=== PATIENT | male | born 1945 | race Caucasian/White ===

== ENCOUNTER 2018-10-30 22:03 | Inpatient (IN) | payer MEDICARE, OTHER, MEDICAID ==
[2018-10-30 22:35] LABS: ADD MAN DIFF? NO
[2018-10-30 22:38] LABS: BASOPHILS % 0.2 % (0.0-2.0); HEMATOCRIT 26.2 % (42.0-52.0); HEMOGLOBIN 8.1 g/dl (14.0-18.0); LYMPHOCYTES # 1.1 10^3/ul (0.8-2.9); LYMPHOCYTES % 7.2 % (15.0-51.0); MEAN CORPUSCULAR HEMOGLOBIN 28.1 pg (29.0-33.0); MEAN CORPUSCULAR HGB CONC 30.9 g/dl (32.0-37.0); MONOCYTE # 0.7 10^3/ul (0.3-0.9); MONOCYTES % 4.5 % (0.0-11.0); NEUTROPHIL # 12.7 10^3/ul (1.6-7.5); NEUTROPHILS % 87.3 % (39.0-77.0); NUCLEATED RED BLOOD CELLS # 0.1 10^3/ul (0.0-0.0); NUCLEATED RED BLOOD CELLS% 0.4 /100WBC (0.0-0.0); PLATELET COUNT 291 10^3/UL (140-415); RED BLOOD COUNT 2.88 10^6/ul (4.70-6.10)
[2018-10-30 22:38] LABS: WHITE BLOOD COUNT 14.6 10^3/ul (4.8-10.8)
[2018-10-30 22:57] LABS: PROTIME 19.4 Sec (11.9-14.9); PT RATIO 1.5
[2018-10-30 22:59] LABS: ALANINE AMINOTRANSFERASE 27 IU/L (13-69); ALBUMIN 3.5 g/dl (3.3-4.9); ALBUMIN/GLOBULIN RATIO 1.06; ALKALINE PHOSPHATASE 103 IU/L (42-121); ANION GAP 12 (5-13); ASPARTATE AMINO TRANSFERASE 34 IU/L (15-46); BILIRUBIN,INDIRECT 0.3 mg/dl (0-1.1); BILIRUBIN,TOTAL 0.3 mg/dl (0.2-1.3); BLOOD UREA NITROGEN 89 mg/dl (7-20); CALCIUM 9.5 mg/dl (8.4-10.2); CARBON DIOXIDE 23 mmol/L (21-31); CHLORIDE 110 mmol/L (97-110); CREATININE 2.08 mg/dl (0.61-1.24); GLUCOSE 155 mg/dl (70-220); POTASSIUM 5.3 mmol/L (3.5-5.1); SODIUM 145 mmol/L (135-144); TOTAL PROTEIN 6.8 g/dl (6.1-8.1)
[2018-10-30 23:10] LABS: ACETAMINOPHEN < 10.0 ug/ml (10.0-30.0); ETHANOL < 10.0 mg/dl (0-0); SALICYLATE < 1.0 mg/dl (5.0-30.0)
[2018-10-30 23:15] LABS: ADD UMIC YES; UR AMORPHOUS CRYSTAL FEW /HPF (NONE SEEN); UR ASCORBIC ACID NEGATIVE (NEGATIVE); UR BACTERIA FEW /HPF (NONE SEEN); UR BILIRUBIN (Dip) NEGATIVE (NEGATIVE); UR BLOOD (Dip) NEGATIVE (NEGATIVE); UR CLARITY CLEAR (CLEAR); UR COLOR YELLOW (YELLOW); UR GLUCOSE (Dip) NEGATIVE (NEGATIVE); UR KETONES (Dip) NEGATIVE (NEGATIVE); UR LEUKOCYTE ESTERASE (Dip) NEGATIVE Leu/ul (NEGATIVE); UR NITRITE (Dip) NEGATIVE (NEGATIVE); UR RBC 0 /HPF (0-5); UR SPECIFIC GRAVITY (Dip) 1.015 (1.003-1.030); UR TOTAL PROTEIN (Dip) 2+ mg/dl (NEGATIVE); UR UROBILINOGEN (Dip) NEGATIVE (NEGATIVE); UR WBC 1 /HPF (0-5)
[2018-10-30 23:24] LABS: AMPHETAMINE/METHAMPHETAMINE Negative (NEGATIVE); BARBITURATES Negative (NEGATIVE); BENZODIAZEPINES Negative (NEGATIVE); CANNABINOIDS Negative (NEGATIVE); COCAINE Negative (NEGATIVE); OPIATES Negative (NEGATIVE)
[2018-10-31] MEDS: SOD CHLORIDE 0.9% 2,450 ML IV
[2018-10-31] MEDS: CEFEPIME 2GM/50 ML (PMX) 50 ML IVPB ×2 (00:10→05:09)
[2018-10-31 00:14] LABS: TROPONIN-I 0.016 ng/ml (0.000-0.120)
[2018-10-31] MEDS: VANCOMYCIN 1 GM (PMX) 250 ML IVPB (01:09)
[2018-10-31] MEDS ORDERED: NA PHOSPHATE/BIPHOS 133 ML ENEMA PR (03:00)
[2018-10-31] MEDS ORDERED: ONDANSETRON 4 MG TAB PO (03:00)
[2018-10-31] MEDS ORDERED: HYDROCODONE/APAP (5/325) TAB PO (03:00)
[2018-10-31] MEDS ORDERED: NACL 0.9% 3 ML SYG IV (03:00)
[2018-10-31] MEDS: LACTATED RINGER'S 1,000 ML IV (03:00)
[2018-10-31] MEDS ORDERED: ACETAMINOPHEN 325 MG TAB PO (03:00)
[2018-10-31] MEDS: LACTATED RINGER'S 250 ML IV (03:12)
[2018-10-31 03:58] LABS: ADD MAN DIFF? NO
[2018-10-31 04:00] LABS: ABNORMAL IP MESSAGE 1; BASOPHILS % 0.2 % (0.0-2.0); HEMATOCRIT 21.7 % (42.0-52.0); LYMPHOCYTES # 1.7 10^3/ul (0.8-2.9); LYMPHOCYTES % 8.9 % (15.0-51.0); MEAN CORPUSCULAR HEMOGLOBIN 29.4 pg (29.0-33.0); MEAN CORPUSCULAR HGB CONC 31.8 g/dl (32.0-37.0); MEAN CORPUSCULAR VOLUME 92.3 fl (82.0-101.0); MEAN PLATELET VOLUME 10.9 fl (7.4-10.4); MONOCYTE # 1.3 10^3/ul (0.3-0.9); MONOCYTES % 6.8 % (0.0-11.0); NEUTROPHIL # 15.8 10^3/ul (1.6-7.5); NEUTROPHILS % 83.2 % (39.0-77.0); NUCLEATED RED BLOOD CELLS # 0.1 10^3/ul (0.0-0.0); NUCLEATED RED BLOOD CELLS% 0.3 /100WBC (0.0-0.0); PLATELET COUNT 245 10^3/UL (140-415); POSITIVE DIFF @See below; RED BLOOD COUNT 2.35 10^6/ul (4.70-6.10); RED CELL DISTRIBUTION WIDTH 16.1 % (11.5-14.5)
[2018-10-31 04:16] LABS: MAGNESIUM 2.1 mg/dl (1.7-2.5)
[2018-10-31 04:17] LABS: ALANINE AMINOTRANSFERASE 32 IU/L (13-69); ALBUMIN/GLOBULIN RATIO 1.15; ALKALINE PHOSPHATASE 80 IU/L (42-121); ANION GAP 12 (5-13); ASPARTATE AMINO TRANSFERASE 25 IU/L (15-46); BILIRUBIN,INDIRECT 0.1 mg/dl (0-1.1); BILIRUBIN,TOTAL 0.1 mg/dl (0.2-1.3); BLOOD UREA NITROGEN 89 mg/dl (7-20); CALCIUM 8.5 mg/dl (8.4-10.2); CARBON DIOXIDE 24 mmol/L (21-31); CHLORIDE 113 mmol/L (97-110); CREATININE 1.88 mg/dl (0.61-1.24); GLUCOSE 134 mg/dl (70-220); MAGNESIUM 2.1 mg/dl (1.7-2.5); POTASSIUM 5.1 mmol/L (3.5-5.1); SODIUM 149 mmol/L (135-144); TOTAL PROTEIN 5.6 g/dl (6.1-8.1)
[2018-10-31 04:22] LABS: HEMOGLOBIN 6.9 g/dl (14.0-18.0)
[2018-10-31] MEDS ORDERED: SOD CHLORIDE 0.9% 250 ML IV* (04:26)
[2018-10-31] MEDS ORDERED: HEPARIN 5,000 UNIT/1 ML VIAL SC (09:00)
[2018-10-31] MEDS ORDERED: APIXABAN 5 MG TABLET PO (09:00)
[2018-10-31] MEDS ORDERED: LOSARTAN 50 MG TAB PO ×2 (09:00→21:00)
[2018-10-31] MEDS ORDERED: VERAPAMIL (SR) 120 MG TAB PO (09:00)
[2018-10-31] MEDS ORDERED: NON-FORMULARY/PATIENT OWN MED (Valsartan* (Diovan*) 160 MG) PO (09:00)
[2018-10-31 09:22] LABS: IRON 28 ug/dl (35-150)
[2018-10-31] MEDS ORDERED: GLUCOSE GEL 15 GRAM TUBE BUCCAL (09:30)
[2018-10-31] MEDS ORDERED: GLUCAGON 1 MG INJ IM (09:30)
[2018-10-31] MEDS ORDERED: DEXTROSE 50% 50 ML SYRINGE IV ×2 (09:30)
[2018-10-31] MEDS ORDERED: GLUCOSE GEL 15 GRAM TUBE PO ×2 (09:30)
[2018-10-31 09:32] LABS: % IRON SATURATION 9 % SAT (22-52); TOTAL IRON BINDING CAPACITY 304 ug/dl (241-421)
[2018-10-31] MEDS: FOLIC ACID 1 MG TAB PO (09:32)
[2018-10-31] MEDS: LACTATED RINGER'S 500 ML IV (09:32)
[2018-10-31] MEDS: FAMOTIDINE 20 MG INJ IV (09:32)
[2018-10-31] MEDS: TIOTROPIUM 18 MCG CAPSULE INHA DEV INH (09:33)
[2018-10-31] MEDS: ASPIRIN (EC) 81 MG TAB PO (09:33)
[2018-10-31] MEDS: FLUTICASONE/VILANTEROL 100-25 INH (09:33)
[2018-10-31 09:59] LABS: FERRITIN 16.1 ng/ml (11.1-264.0)
[2018-10-31] MEDS ORDERED: ACCU-CHEK XX (10:00)
[2018-10-31 11:09] LABS: IMMEDIATE SPIN CROSSMATCH 1 5
[2018-10-31] MEDS ORDERED: INSULIN ASPART [NOVOLOG] 3 ML PEN SC (12:00)
[2018-10-31 12:33] LABS: OCCULT BLOOD STOOL POSITIVE (NEGATIVE)
[2018-10-31] MEDS: INSULIN ASPART [NOVOLOG] 3 ML PEN SC (13:15)
[2018-10-31] MEDS ORDERED: PHENYLephrine 20MG IN 250 ML 250 ML (14:53)
[2018-10-31] MEDS ORDERED: NORepinephrine 8MG/250 ML (PMX 250 ML IV ×2 (15:00→15:30)
[2018-10-31 15:16] LABS: WHITE BLOOD COUNT 19.7 10^3/ul (4.8-10.8)
[2018-10-31 15:16] LABS: ABNORMAL IP MESSAGE 1; HEMATOCRIT 20.2 % (42.0-52.0); MEAN CORPUSCULAR HEMOGLOBIN 29.9 pg (29.0-33.0); MEAN CORPUSCULAR HGB CONC 29.7 g/dl (32.0-37.0); MEAN CORPUSCULAR VOLUME 100.5 fl (82.0-101.0); MEAN PLATELET VOLUME 11.9 fl (7.4-10.4); NUCLEATED RED BLOOD CELLS% 9.1 /100WBC (0.0-0.0); PLATELET COUNT 189 10^3/UL (140-415); POSITIVE DIFF @See below; RED BLOOD COUNT 2.01 10^6/ul (4.70-6.10); RED CELL DISTRIBUTION WIDTH 14.7 % (11.5-14.5)
[2018-10-31 15:25] LABS: AADO2 Arterial 473.8 mmHg (7.0-24.0); Allen Test ACCEPTAB; Arterial Base Excess -26.5 mmol/L (-3.0-3); Arterial Blood Gas Oxygen Sat 96.6 mmHG (95.0-100.0); Arterial COHb 0.3 % (0.0-3.0); Arterial Fraction of Oxyhgb 95.5 % (93.0-99.0); Arterial HCO3 7.7 mmol/L (22.0-26.0); Arterial MetHb 0.8 % (0.0-1.5); Arterial pCO2 63.4 mmhg (35-45); MODE VENT - AC; Site Right Radial
[2018-10-31 15:28] LABS: ADD MAN DIFF? YES
[2018-10-31 15:34] LABS: INR 3.01; PARTIAL THROMBOPLASTIN TIME 45.9 Sec (23.0-35.0); PROTIME 32.1 Sec (11.9-14.9); PT RATIO 2.5
[2018-10-31 15:40] LABS: MAGNESIUM 2.6 mg/dl (1.7-2.5)
[2018-10-31 15:53] LABS: TROPONIN-I 0.014 ng/ml (0.000-0.120)
[2018-10-31 15:59] LABS: ANION GAP 19 (5-13); BLOOD UREA NITROGEN 84 mg/dl (7-20); CHLORIDE 122 mmol/L (97-110); CREATININE 2.17 mg/dl (0.61-1.24); GLUCOSE 212 mg/dl (70-220); SODIUM 151 mmol/L (135-144)
[2018-10-31] MEDS ORDERED: EPINEPHrine 4 MG in DEXTROSE 5% 246 ML IV (16:00)
[2018-10-31 16:02] LABS: CARBON DIOXIDE 10 mmol/L (21-31); POTASSIUM 6.4 mmol/L (3.5-5.1)
[2018-10-31 16:19] LABS: ANISOCYTOSIS 2+ (0-0); BAND NEUTROPHILS #M 0.5 10^3/ul (0.0-0.6); BAND NEUTROPHILS % (M) 3 % (0-4); ERYTHROBLAST% (NRBC) (M) 10 % (0-0); LYMPHOCYTES #M 3.9 10^3/ul (0.8-2.9); LYMPHOCYTES % (M) 20 % (15-51); MICROCYTOSIS 2+ (0-0); MONOCYTE #M 1.3 10^3/ul (0.3-0.9); MONOCYTES % (M) 7 % (0-11); MYELOCYTES #M 0.5 10^3/ul (0.0-0.0); MYELOCYTES % (M) 3 % (0-0); OVALOCYTES 1+ (0-0); PLATELET ESTIMATE NORMAL; POIKILOCYTOSIS 2+ (0-0); POLYCHROMASIA 3+ (0-0); REACTIVE LYMPHOCYTES #M 0.1 10^3/ul (0.0-0.0); REACTIVE LYMPHOCYTES% (M) 1 % (0-0); SEG NEUT #M 12.9 10^3/ul (1.6-7.5); SEGMENTED NEUTROPHILS (M) % 65 % (39-77); SMUDGE%M 2 % (0-0)
[2018-10-31] MEDS ORDERED: SOD FERRIC GLUC COMPLX 125 MG in SOD CHLORIDE 0.9% 100 ML IVPB (17:00)
[2018-10-31] MEDS ORDERED: INSULIN GLARGINE [LANTus] (100 UNITS/ML) SYG SC (20:00)
[2018-10-31] MEDS ORDERED: BACLOFEN 10 MG TAB PO ×2 (21:00)
[2018-10-31] MEDS ORDERED: ATORVASTATIN 10 MG TAB PO (21:00)
[2018-10-31] MEDS ORDERED: MONTELUKAST 10 MG TAB PO (21:00)
[2018-10-31] MEDS ORDERED: NON-FORMULARY/PATIENT OWN MED (Simvastatin* (Zocor*) 20 MG) PO (21:00)
[2018-11-01] MEDS ORDERED: ACCU-CHEK XX (02:00)
[2018-11-01] MEDS ORDERED: SOD FERRIC GLUC COMPLX 125 MG in SOD CHLORIDE 0.9% 100 ML IVPB (13:00)
== END 2018-10-31 16:00 | disposition expired | DRG 683 ==
LOC: E/R 22:03 → 6WM 23:50 → ICU 10-31 14:38
PROVIDERS: Family Medicine; Internal Medicine
PROC: 06HM33Z Insertion of Infusion Device into Right Femoral Vein, Percutaneous Approach (ICD-10-PCS; principal; 2018-10-31)
PROC: 0BH17EZ Insertion of Endotracheal Airway into Trachea, Via Natural or Artificial Opening (ICD-10-PCS; 2018-10-31)
PROC: 5A1935Z Respiratory Ventilation, Less than 24 Consecutive Hours (ICD-10-PCS; 2018-10-31)
PROC: 30233N1 Transfusion of Nonautologous Red Blood Cells into Peripheral Vein, Percutaneous Approach (ICD-10-PCS; 2018-10-31)
DX: N17.9 Acute kidney failure, unspecified (principal); R65.10 Systemic inflammatory response syndrome (SIRS) of non-infectious origin without acute organ dysfunction; I69.954 Hemiplegia and hemiparesis following unspecified cerebrovascular disease affecting left non-dominant side; K92.1 Melena; D68.9 Coagulation defect, unspecified; Z66 Do not resuscitate; Z95.5 Presence of coronary angioplasty implant and graft; I10 Essential (primary) hypertension; I69.922 Dysarthria following unspecified cerebrovascular disease; Z95.0 Presence of cardiac pacemaker; D50.9 Iron deficiency anemia, unspecified; R79.89 Other specified abnormal findings of blood chemistry; E11.9 Type 2 diabetes mellitus without complications; I48.2 Chronic atrial fibrillation; Z99.3 Dependence on wheelchair; R60.9 Edema, unspecified; J44.9 Chronic obstructive pulmonary disease, unspecified; I46.9 Cardiac arrest, cause unspecified; Z79.02 Long term (current) use of antithrombotics/antiplatelets
CPT/HCPCS: 31500; 36415; 36430; 36600; 70450; 71045; 80048; 80053; 80307; 81001; 82270; 82728; 82803; 82962; 83540; 83605; 83735; 84484; 85025; 85610; 85730; 86850; 86900; 86901; 86920; 87040; 87086; 87400; 92610; 92950; 93005; 94002; 94770; 99285-25